=== PATIENT | female | born 1970 | race Caucasian/White ===

== ENCOUNTER 2022-09-22 10:37 | Emergency (ER) | payer OTHER ==
[~2022-09-22] VITALS: Ht 162.6 cm; Wt 75.0 kg
[2022-09-22] MEDS ORDERED: BACLOFEN 10 MG TABLET PO ONE (11:30)
[2022-09-22] MEDS ORDERED: IBUPROFEN 600 MG TABLET PO ONE (11:30)
[2022-09-22] MEDS ORDERED: LIDOCAINE 5% TRANSDERMAL PATCH TD ONE (11:30)
[2022-09-22 13:44] VITALS: BP 131/67
[2022-09-22] MEDS ORDERED: HYDR-4723 PO (14:22)
[2022-09-22] MEDS ORDERED: IBUP-1492 PO (14:25)
[2022-09-22] MEDS ORDERED: LIDO700A15 TP (14:25)
[2022-09-22] MEDS ORDERED: BACL10TA PO (14:26)
== END 2022-09-22 14:47 | disposition home or self-care (01) ==
LOC: EMS 10:44
DX: M54.50 Low back pain, unspecified (principal); F12.90 Cannabis use, unspecified, uncomplicated
CPT/HCPCS: 72131; 99284

== ENCOUNTER 2025-07-03 10:36 | Emergency (ER) | payer OTHER ==
[~2025-07-03] VITALS: Ht 160 cm; Wt 91.0 kg
[~2025-07-03 10:36] MED LIST: BACL10TA PO; HYDR-4062 PO; IBUP-1492 PO; LIDO-57 TP
[2025-07-03 10:42] VITALS: BP 116/78; PULSE 100; RESP 18; TEMP 97.7; O2SAT 100
[2025-07-03 10:53] LABS: COVID AG,FIA SOURCE NASAL SWAB
[2025-07-03 11:17] LABS: SARS-COV2 (COVID) ANTIGEN,FIA Negative (Negative)
[2025-07-03 11:19] LABS: INFLUENZA TYPE A NEGATIVE FOR TYPE A (NEGATIVE); INFLUENZA TYPE B NEGATIVE FOR TYPE B (NEGATIVE)
[2025-07-03] MEDS ORDERED: SULF15DR26 OD (12:29)
[2025-07-03] MEDS ORDERED: ACET-2080 PO (12:29)
[2025-07-03] MEDS ORDERED: CEPH-558 PO (12:29)
[2025-07-03] MEDS: ACETAMINOPHEN/CODEINE 300-30 MG TABLET PO ONE (12:33)
[2025-07-03] MEDS: FLUORESCEIN SODIUM 1 MG STRIP OU ONE (12:34)
== END 2025-07-03 12:43 | disposition home or self-care (01) ==
LOC: EMS 10:36
DX: H00.014 Hordeolum externum left upper eyelid (principal); F12.90 Cannabis use, unspecified, uncomplicated; Z20.822 Contact with and (suspected) exposure to COVID-19
CPT/HCPCS: 87804; 99283